=== PATIENT | female | born 1960 | race Asian ===

== ENCOUNTER → 2023-08-31 08:29 | Outpatient (REF) | payer MEDICARE, SELFPAY ==
[2023-08-31 11:56] LABS: ALT (SGPT) 25 U/L (0-35); AST (SGOT) 38 U/L (14-36); Albumin 4.2 g/dl (3.5-5.0); Alkaline Phosphatase 89 U/L (38-126); Blood Urea Nitrogen 17 mg/dl (7-17); Calcium 9.4 mg/dl (8.4-10.2); Carbon Dioxide 29 mmol/L (22-30); Chloride 107 mmol/L (98-107); Glucose 92 mg/dl (70-99); Potassium 4.7 mmol/L (3.5-5.1); Sodium 143 mmol/L (135-145); Total Bilirubin 0.5 mg/dl (0.2-1.3); Total Protein 7.4 g/dl (6.3-8.2); eGFR > 60.00
[2023-08-31 15:37] LABS: Hepatitis B Surface Antigen Positive (Negative)
[2023-08-31 15:54] LABS: Hepatitis B Surface Antibody Negative
[2023-09-01 17:53] LABS: HBV Quant by NAAT Interp Detected (Not Detected); HBV Quant by NAAT Log IU/mL <1.00 log IU/mL
== END ==
LOC: RAD 08:29
PROVIDERS: ATTENDING PHYSICIAN Internal Medicine Gastroenterology; FAMILY PHYSICIAN Nurse Practitioner Adult Health
DX: B18.1 Chronic viral hepatitis B without delta-agent (principal)
CPT/HCPCS: 36415; 76700; 80053; 86706; 87340; 87517

== ENCOUNTER → 2024-01-09 07:28 | Outpatient (REF) | payer MEDICARE, SELFPAY ==
[2024-01-09 08:40] LABS: % Basophils 0.9 % (0-2); % Immature Granulocytes 0.2 % (0-0.5); % Lymphocytes 38.1 % (20.5-51.1); % Monocytes 6.1 % (1.7-9.3); % Neutrophils 52.7 % (42.2-75.2); Absolute Eosinophils 0.1 10^3/uL (0-0.7); Absolute Lymphocytes 1.7 10^3/uL (1.2-3.4); Absolute Monocytes 0.3 10^3/uL (0.1-0.6); Absolute Neutrophils 2.3 10^3/uL (1.4-6.5); Hematocrit 39.3 % (37.0-47.0); Hemoglobin 13.4 g/dL (12.0-16.0); Mean Corp Hgb Conc. 34.1 g/dL (33.0-37.0); Mean Corpuscular Hgb 30.2 pg (27.0-31.0); Mean Corpuscular Volume 88.7 fL (81.0-99.0); Mean Platelet Volume 9.4 fL (7.4-10.4); Nucleated Red Blood Cells % 0 %; Platelet Count 216 10^3/uL (130-400); Red Blood Cell Count 4.43 10^6/uL (4.20-5.40); Red Cell Dist. Width 12.3 % (11.5-14.5); White Blood Cell Count 4.4 10^3/uL (4.8-10.8)
[2024-01-09 09:07] LABS: ALT (SGPT) 28 U/L (0-35); AST (SGOT) 38 U/L (14-36); Albumin 4.3 g/dl (3.5-5.0); Alkaline Phosphatase 94 U/L (38-126); Blood Urea Nitrogen 16 mg/dl (7-17); Calcium 9.3 mg/dl (8.4-10.2); Carbon Dioxide 28 mmol/L (22-30); Chloride 105 mmol/L (98-107); Glucose 101 mg/dl (70-99); HDL Cholesterol 54 mg/dl; Iron 82 ug/dl (37-170); LDL Cholesterol, Calculated 127 mg/dl; Potassium 4.5 mmol/L (3.5-5.1); Sodium 144 mmol/L (135-145); Total Bilirubin 0.5 mg/dl (0.2-1.3); Total Cholesterol 220 mg/dl (50-199); Total Protein 7.6 g/dl (6.3-8.2); Triglyceride 195 mg/dl (10-149); Very Low Density Lipoprotein 39 mg/dl (0-30); eGFR > 60.00
[2024-01-09 09:14] LABS: Vitamin D, 25-OH*** 49.4 ng/mL (30-80)
[2024-01-09 09:16] LABS: Percent Saturation 32 % (20-50); Total Iron Binding Capacity 249 ug/dl (265-497)
[2024-01-09 09:28] LABS: TSH Reflex To Free T4 1.06 uIU/ml (0.47-4.68)
[2024-01-09 09:34] LABS: Glycohemoglobin (HgbA1c) 5.7 % (4.0-5.6)
== END ==
LOC: REG 07:28
PROVIDERS: ATTENDING PHYSICIAN Nurse Practitioner Adult Health
DX: E78.2 Mixed hyperlipidemia (principal); Z00.00 Encounter for general adult medical examination without abnormal findings; D50.9 Iron deficiency anemia, unspecified; B18.1 Chronic viral hepatitis B without delta-agent; Z13.29 Encounter for screening for other suspected endocrine disorder; Z79.899 Other long term (current) drug therapy; E55.9 Vitamin D deficiency, unspecified; R73.09 Other abnormal glucose
CPT/HCPCS: 36415; 80053; 80061; 82306; 83036; 83540; 83550; 84443; 85025

== ENCOUNTER → 2024-03-05 09:19 | Outpatient (REF) | payer MEDICARE, SELFPAY | LOC: RAD 09:19 | PROVIDERS: ATTENDING PHYSICIAN Nurse Practitioner Adult Health | DX: M81.0 Age-related osteoporosis without current pathological fracture (principal) | CPT/HCPCS: 77080 ==

== ENCOUNTER → 2024-04-26 07:49 | Outpatient (REF) | payer MEDICARE, SELFPAY ==
[2024-04-26 10:06] LABS: ALT (SGPT) 31 U/L (0-35); AST (SGOT) 38 U/L (14-36); Albumin 4.3 g/dl (3.5-5.0); Alkaline Phosphatase 105 U/L (38-126); Blood Urea Nitrogen 15 mg/dl (7-17); Calcium 9.4 mg/dl (8.4-10.2); Carbon Dioxide 30 mmol/L (22-30); Chloride 101 mmol/L (98-107); Glucose 96 mg/dl (70-99); HDL Cholesterol 48 mg/dl; LDL Cholesterol, Calculated 135 mg/dl; Potassium 4.1 mmol/L (3.5-5.1); Sodium 140 mmol/L (135-145); Total Bilirubin 0.6 mg/dl (0.2-1.3); Total Cholesterol 228 mg/dl (50-199); Total Protein 7.5 g/dl (6.3-8.2); Triglyceride 228 mg/dl (10-149); Very Low Density Lipoprotein 45 mg/dl (0-30); eGFR > 60.00
[2024-04-26 10:34] LABS: Hepatitis B Surface Antigen Positive (Negative)
[2024-04-26 10:52] LABS: Hepatitis B Surface Antibody Negative
== END ==
LOC: REG 07:49
PROVIDERS: ATTENDING PHYSICIAN Internal Medicine Gastroenterology; FAMILY PHYSICIAN Nurse Practitioner Adult Health
DX: B18.1 Chronic viral hepatitis B without delta-agent (principal); K76.0 Fatty (change of) liver, not elsewhere classified
CPT/HCPCS: 36415; 80053; 80061; 86706; 87340

== ENCOUNTER → 2024-06-05 08:54 | Outpatient (REF) | payer MEDICARE, SELFPAY | LOC: WDC 08:54 | PROVIDERS: ATTENDING PHYSICIAN Nurse Practitioner Adult Health | DX: Z12.31 Encounter for screening mammogram for malignant neoplasm of breast (principal) | CPT/HCPCS: 77063; 77067 ==

== ENCOUNTER → 2024-07-02 09:24 | Outpatient (REF) | payer MEDICARE, SELFPAY | LOC: RAD 09:24 | PROVIDERS: ATTENDING PHYSICIAN Internal Medicine Gastroenterology; FAMILY PHYSICIAN Nurse Practitioner Adult Health | DX: B18.1 Chronic viral hepatitis B without delta-agent (principal) | CPT/HCPCS: 76700 ==

== ENCOUNTER → 2024-11-15 07:32 | Outpatient (REF) | payer MEDICARE, SELFPAY ==
[2024-11-15 09:52] LABS: ALT (SGPT) 24 U/L (0-35); AST (SGOT) 28 U/L (14-36); Albumin 4.3 g/dl (3.5-5.0); Alkaline Phosphatase 81 U/L (38-126); Blood Urea Nitrogen 15 mg/dl (7-17); Calcium 9.5 mg/dl (8.4-10.2); Carbon Dioxide 30 mmol/L (22-30); Chloride 106 mmol/L (98-107); Glucose 98 mg/dl (70-99); Potassium 4.2 mmol/L (3.5-5.1); Sodium 142 mmol/L (135-145); Total Protein 8.0 g/dl (6.3-8.2); eGFR > 60.00
[2024-11-15 11:17] LABS: Hepatitis B Surface Antigen Positive (Negative)
[2024-11-18 01:23] LABS: HBV Quant by NAAT IU/mL Not Detected; HBV Quant by NAAT Interp Not Detected (Not Detected); HBV Quant by NAAT Log IU/mL Not Detected log IU/mL
== END ==
LOC: REG 07:32
PROVIDERS: ATTENDING PHYSICIAN Internal Medicine Gastroenterology; FAMILY PHYSICIAN Nurse Practitioner Adult Health
DX: K76.0 Fatty (change of) liver, not elsewhere classified (principal); B18.1 Chronic viral hepatitis B without delta-agent
CPT/HCPCS: 36415; 80053; 86706; 87340; 87350; 87517

== ENCOUNTER → 2025-01-06 07:58 | Outpatient (REF) | payer MEDICARE, SELFPAY ==
[2025-01-06 09:58] LABS: ALT (SGPT) 22 U/L (0-35); AST (SGOT) 31 U/L (14-36); Albumin 4.3 g/dl (3.5-5.0); Alkaline Phosphatase 89 U/L (38-126); Blood Urea Nitrogen 17 mg/dl (7-17); Calcium 9.2 mg/dl (8.4-10.2); Carbon Dioxide 31 mmol/L (22-30); Chloride 107 mmol/L (98-107); Glucose 98 mg/dl (70-99); Potassium 4.6 mmol/L (3.5-5.1); Sodium 143 mmol/L (135-145); Total Protein 7.9 g/dl (6.3-8.2); eGFR > 60.00
== END ==
LOC: RAD 07:58
PROVIDERS: ATTENDING PHYSICIAN Internal Medicine Gastroenterology; FAMILY PHYSICIAN Nurse Practitioner Adult Health
DX: B18.1 Chronic viral hepatitis B without delta-agent (principal)
CPT/HCPCS: 36415; 76700; 80053

== ENCOUNTER → 2025-01-22 08:11 | Outpatient (REF) | payer MEDICARE, SELFPAY ==
[2025-01-22 09:22] LABS: Hematocrit 43.5 % (37.0-47.0); Hemoglobin 14.1 g/dL (12.0-16.0); Mean Corp Hgb Conc. 32.4 g/dL (33.0-37.0); Mean Corpuscular Volume 93.5 fL (81.0-99.0); Nucleated Red Blood Cells % 0 %; Platelet Count 221 10^3/uL (130-400); Red Cell Dist. Width 12.8 % (11.5-14.5)
[2025-01-22 09:50] LABS: HDL Cholesterol 57 mg/dl; Iron 100 ug/dl (37-170); LDL Cholesterol, Calculated 142 mg/dl; Very Low Density Lipoprotein 35 mg/dl (0-30)
[2025-01-22 10:00] LABS: Total Iron Binding Capacity 282 ug/dl (265-497)
[2025-01-22 10:08] LABS: Vitamin D, 25-OH*** 59.7 ng/mL (30-80)
[2025-01-22 10:10] LABS: Glycohemoglobin (HgbA1c) 5.6 % (4.0-5.9)
[2025-01-24 10:23] LABS: Lipoprotein a (Lp a) 36 mg/dL (<=29)
== END ==
LOC: REG 08:11
PROVIDERS: ATTENDING PHYSICIAN Nurse Practitioner Adult Health
DX: Z00.00 Encounter for general adult medical examination without abnormal findings (principal); Z13.29 Encounter for screening for other suspected endocrine disorder; E78.2 Mixed hyperlipidemia; I70.0 Atherosclerosis of aorta; R73.09 Other abnormal glucose; E61.1 Iron deficiency; E55.9 Vitamin D deficiency, unspecified
CPT/HCPCS: 36415; 80061; 82172; 82306; 83036; 83540; 83550; 83695; 84439; 84443; 85025

== ENCOUNTER → 2025-03-12 11:59 | Outpatient (REF) | payer MEDICARE, SELFPAY | LOC: REG 11:59 | PROVIDERS: ATTENDING PHYSICIAN Nurse Practitioner Adult Health | DX: E05.90 Thyrotoxicosis, unspecified without thyrotoxic crisis or storm (principal) | CPT/HCPCS: 36415; 84443 ==